=== PATIENT | male | born 1965 | race Caucasian/White ===

== ENCOUNTER 2018-11-08 12:02 | Outpatient (CLI) | payer MEDICARE, SELFPAY ==
--- NOTE | 2018-11-08 11:55 | DI.RAD_ITS ---
SYMPTOMS/DIAGNOSIS: OLECRANON BURSITIS LEFT ELBOW: Two views. No acute fracture or dislocation, lytic or sclerotic lesion is seen. There is no joint effusion. There is soft tissue swelling over the olecranon. No radiopaque foreign bodies are seen in the soft tissues. IMPRESSION: Soft tissue swelling over the olecranon.
== END 2018-11-08 12:22 ==
PROVIDERS: PCP Nurse Practitioner; Referring Provider Nurse Practitioner; Visit Provider Orthopaedic Surgery
DX: M25.522 Pain in left elbow (principal); R22.32 Localized swelling, mass and lump, left upper limb; M70.22 Olecranon bursitis, left elbow
CPT/HCPCS: 99201; 99203; 73070

== ENCOUNTER 2018-11-23 08:39 | Outpatient (REF) | payer MEDICARE, SELFPAY ==
[2018-11-23 13:53] LABS: Abs Immature Grans 0.01 k/cumm (0.0-0.09); Absolute Basophil Count 0.05 k/cumm (0.0-0.2); Absolute Eosinophil Count 0.16 k/cumm (0.0-0.7); Absolute Lymphocyte Count 1.57 k/cumm (1.2-3.4); Absolute Neutrophil Count 3.53 k/cumm (1.2-6.7); Basophils % 0.8; Eosinophils % 2.7; HCT 43.3 % (40.0-50.0); HGB 14.3 g/dL (13.5-17.5); Immature Grans % 0.2; Lymphocytes % 26.5; Mean Corpuscular Hemoglobin 29.9 pg (27.0-33.0); Mean Corpuscular Volume 90.4 fL (80-95); Mean Platelet Volume 11.2 fL (8.0-11.0); Monocytes % 10.1; Neutrophils % 59.7; Platelet Count 265 x1000/uL (130-400); RBC 4.79 m/cumm (4.50-6.00); RBC Distribution Width 13.7 % (11.8-14.1); White Blood Cell Count 5.92 k/cumm (4.4-10.8)
[2018-11-23 14:25] LABS: ALT 15 U/L (12-78); AST 11 U/L (15-37); Albumin 3.6 g/dL (3.4-5.0); Alkaline Phosphatase 62 U/L (46-116); Anion Gap 7.8 mmol/L (3-11); BUN 12 mg/dL (7-18); Bilirubin, Total 0.3 mg/dL (0.2-1.0); CO2 33.2 mmol/L (21.0-32.0); CREATININE 0.98 mg/dL (0.70-1.30); Calcium 9.2 mg/dL (8.5-10.1); Chloride 101 mmol/L (98-107); Cholesterol 211 mg/dL (50-200); Glucose 106 mg/dL (70-100); HDL Cholesterol 36 mg/dL (40-60); LDL CHOLESTEROL 144 mg/dL (<100); Potassium 3.6 mmol/L (3.5-5.1); Sodium 142 mmol/L (136-145); Total Protein 6.9 g/dL (6.4-8.2); Triglyceride 166 mg/dL (30-150)
== END 2018-11-23 08:59 ==
LOC: NCHCN 08:39
PROVIDERS: PCP Nurse Practitioner; Visit Provider Nurse Practitioner
DX: E78.5 Hyperlipidemia, unspecified (principal); I25.10 Atherosclerotic heart disease of native coronary artery without angina pectoris; I10 Essential (primary) hypertension
CPT/HCPCS: 80053; 80061; 83721; 85025

== ENCOUNTER → 2019-01-03 10:32 | Outpatient (BNVA) | payer MEDICARE, MEDICAID, SELFPAY | PROVIDERS: PCP Nurse Practitioner; Referring Provider Nurse Practitioner; Visit Provider Physical Therapy Assistant | DX: Z12.11 Encounter for screening for malignant neoplasm of colon (principal); Z80.0 Family history of malignant neoplasm of digestive organs; Z80.41 Family history of malignant neoplasm of ovary; Z79.01 Long term (current) use of anticoagulants; J44.9 Chronic obstructive pulmonary disease, unspecified; F17.210 Nicotine dependence, cigarettes, uncomplicated; I10 Essential (primary) hypertension ==

== ENCOUNTER 2019-01-09 09:06 | Outpatient (REF) | payer MEDICARE, SELFPAY ==
[2019-01-09 12:34] LABS: Cholesterol 204 mg/dL (50-200); HDL Cholesterol 40 mg/dL (40-60); LDL CHOLESTEROL 135 mg/dL (<100); Triglyceride 131 mg/dL (30-150)
== END 2019-01-09 09:26 ==
LOC: NCHCN 09:06
PROVIDERS: PCP Nurse Practitioner; Visit Provider Nurse Practitioner
DX: E78.5 Hyperlipidemia, unspecified (principal)
CPT/HCPCS: 80061; 83721

== ENCOUNTER 2019-01-28 11:07 | Day surgery (SDC) | payer MEDICARE, SELFPAY ==
--- NOTE | 2019-01-28 07:07 | W.COLOREPORT ---
Date of service: 01/28/19 Time of Service: 12:17 Colonoscopy Report Date of procedure: 01/28/19 Pre-op diagnosis general: Colon Cancer Screening Post-op diagnosis procedure note: other (polyps) Procedure: Colonoscopy with polypectomy by cold forceps Surgeon: Rufina Morrison Anesthesia proc note operative: other (General/ ASA 2 / Mckayla Pineda CRNA) Estimated blood loss (mL): 3 Pathology: other (Sigmoid polyp x1, rectal polyps x4) Complications: None Disposition: same day Indications: Mr. Bell is a pleasant 53 year old male seen in the office for colon cancer Screening. Risks, benefits and complications have been reviewed. Complications include but are not limited to bleeding, pain, perforation, missed small lesion/polyp, sore throat, aspiration and adverse reaction to the medications. Questions were entertained and answered to their satisfaction and they wished to proceed. No guarantees were given or implied. Prep: Miralax/Dulcolax Procedure Start Time: 12:17 Procedure End Time: 13:17 Retraction Time: 25 Findings: 5 small polyps removed with cold forceps very tortuous colon. Procedure Description: After informed consent was obtained the patient was taken to the procedure room and placed in a left decubitous position. Monitors were applied and a time out was done. The patients name, date of , procedure, allergies to medications and metal in their body was reviewed. The patient was then sedated. Once sedated and comfortable a rectal exam was done. External exam was normal. Internal exam revealed a normal sphincter tone and no palpable masses. The prostate smooth. The scope was then introduced and retro-flexed. No internal hemorrhoids were identified. No polyps or masses noted. The scope was then advanced to the cecum with a lot of difficultydue to a very tortuous colon. The patient had to be placed in a suppine position and abdominal pressure was applied in order for the scope to get into the cecum. The TI and appendiceal orifice were identified. The prep was suboptimal. 1.5 L of sterile water was used to clean the colon. The scope was then slowly retracted over 25 minutes back into the rectum. Polyps were removed X1 in the sigmoid colon and x4 in the rectum with cold forceps. The scope was removed and the patient was woken up and taken back to Same day surgery in stable condition. The patient tolerated the procedure well and there were no immediate complications. Follow up: The patient should follow up in 3-5 years unless they develop changes in bowel habits or other new gastrointestinal complaints.
--- NOTE | 2019-01-28 07:08 | W.PM.DSUDISC ---
Discharge Plan Disposition Patient Disposition: HOME Condition: Good Discharge Details Reason For Visit: Colon cancer Screening Attending Provider: Rufina Morrison Primary Care Provider: Dena Zuluaga Home Meds and New Rx's Prescriptions: Continued Breo Ellipta 100-25 mcg/dose blister with device 1 inh IH DAILY RF: 0 ipratropium-albuterol 0.5 mg-3 mg(2.5 mg base)/3 mL solution for nebulization 3 ml IH QID RF: 0 metoprolol tartrate 100 mg tablet 100 mg PO BID RF: 0 losartan 100 mg tablet 100 mg PO DAILY RF: 0 hydrochlorothiazide 25 mg tablet 25 mg PO DAILY RF: 0 clopidogrel 75 mg tablet 75 mg PO DAILY RF: 0 atorvastatin 10 mg tablet 10 mg PO DAILY RF: 0 aspirin [Adult Low Dose Aspirin] 81 mg tablet,delayed release (DR/EC) 81 mg PO DAILY RF: 0 albuterol 90 mcg/actuation aerosol IH RF: 0 Discharge Instructions Instructions: Colonoscopy (DC), Colorectal Polyps (DC) Additional Instructions: Findings: 5 small polyps all removed Follow up: 3-5 years Please call if you develop: fevers >101.5 Nausea or Vomiting Abdominal pain that is not transient DAY SURGERY UNIT POST COLONOSCOPY INSTRUCTIONS 1. Because there will be medication in your system for the next 24 hours, you may feel a little sleepy. Your coordination will be affected. Therefore: a. Do not drive or operate dangerous equipment for 24 hours. b. Do not drink alcohol beverages for 24 hours (not even beer). c. Plan to go home and rest for the day. 2. Generally there are no restrictions on your activity after a day or so has gone by, but you may feel a bit fatigued for a few days. 3 After you arrive home you may have a light meal and return to a normal diet as you can tolerate it without feeling sick to your stomach. 4. After surgery, you may feel pain or discomfort. This should be only transient, but if it persists please contact your doctor. 5. If there are any questions regarding the findings of your procedure, please feel free to contact your doctor. 6. If you are unable to contact your doctor with a problem, contact the hospital at [phone]. 7. Continue all your regular medications unless directed otherwise. I understand the above instructions and have no questions. Signature of Patient or Responsible Adult Escort Date/Time Name of Responsible Adult Escort Signature of Nurse Date/Time Activity:: Activity as Tolerated Diet:: As Tolerated Discharge Orders Discharge Orders: Discharge Order (Routine); Ordered 01/28/19 Ordered By: Rufina Morrison DS: Diagnosis Discharge Diagnosis (1) S/P colonoscopy: Status: Acute (2) Colorectal polyps: Status: Acute
[2019-01-28 11:18] VITALS: BP 145/97; PULSE 99; RESP 20; TEMP 35.5; O2SAT 94
[2019-01-28] MEDS: Lactated Ringers 1,000 ML 80 ML IV (12:03)
--- NOTE | 2019-01-28 12:30 | BOWEL_PTH ---
PATIENT: Catalino Bell LOC: [facility] U#:[id number] AGE/SX: 53/M ROOM: RE01/28/[address]: Rufina Morrison MD : [id number] BED: DIS: 01/28/2019 SPEC #: [id number] RECD: 01/28/19 17:14 STATUS: KENDRA ELLIS #: [id number] AYESHA: 01/28/19 12:[address]: Rufina Morrison DEPT: Surgical Specimen RECD BY: Margaret Melissa ENTERED: 01/28/19 17:14 SP TYPE: Bowel OTHR DR: Dena Zuluaga Tissues: 1 - BIOPSY BOWEL 2 - BIOPSY BOWEL Procedures: GROSS AND MICRO LEVEL 4 Comments: [id number]
[2019-01-28 13:55] VITALS: BP 129/84; PULSE 70; RESP 16; TEMP 35.4; O2SAT 96
== END 2019-01-28 14:05 | disposition home or self-care (01) ==
LOC: SUR 11:10
PROVIDERS: PCP Nurse Practitioner Family; Visit Provider Surgery
PROC: 0DJD8ZZ Inspection of Lower Intestinal Tract, Via Natural or Artificial Opening Endoscopic (ICD-10-PCS; CPT 45378; principal; 2019-01-28 12:15)
DX: Z12.11 Encounter for screening for malignant neoplasm of colon (principal); K63.5 Polyp of colon; K62.1 Rectal polyp; Z80.0 Family history of malignant neoplasm of digestive organs; F17.210 Nicotine dependence, cigarettes, uncomplicated; J44.9 Chronic obstructive pulmonary disease, unspecified; I10 Essential (primary) hypertension; I25.2 Old myocardial infarction
CPT/HCPCS: 45380; 88305

== ENCOUNTER 2019-04-26 20:53 | Outpatient (REF) | payer MEDICARE, SELFPAY ==
[2019-04-26 21:40] LABS: Hemoglobin A1C 5.8 % (4.5-6.2)
== END 2019-04-26 21:13 ==
LOC: NCHCN 20:53
PROVIDERS: PCP Nurse Practitioner Family; Visit Provider Family Medicine
DX: R73.01 Impaired fasting glucose (principal)
CPT/HCPCS: 83036

== ENCOUNTER 2020-11-27 12:56 | Emergency (ER) | payer MEDICARE, MEDICAID, SELFPAY ==
[2020-11-27] VITALS (24 sets, daily range): BP systolic 116–154; BP diastolic 61–87; PULSE 56–72; RESP 14–25; TEMP 36.6; O2SAT 95–99
--- NOTE | 2020-11-27 12:45 | RT.EKG_ITS ---
APPROVED REPORT Exam: Resting ECG Patient Location: E HR:65 bpm ECG Measurements Heart Rate 65 AXIS WY 144 P 72 QRSd 99 QRS 74 QT 413 T 58 QTc 429 Conclusion Sinus rhythm...normal P axis, V-rate 60- 99 Inferior infarct, old...Q >35mS, II III aVF
--- NOTE | 2020-11-27 13:01 | ED.GENADUL_ITS ---
Discharge Plan Disposition Patient Disposition: HOME Condition: Good Discharge Details Clinical Impression: Hand tingling Primary Care Provider: Dena Zuluaga ED Provider: Rupinder Morris Home Meds and New Rx's Prescriptions: Continued ipratropium-albuterol 0.5 mg-3 mg(2.5 mg base)/3 mL solution for nebulization 3 ml IH QID RF: 0 losartan 100 mg tablet 100 mg PO DAILY RF: 0 hydrochlorothiazide 25 mg tablet 25 mg PO DAILY RF: 0 aspirin [Adult Low Dose Aspirin] 81 mg tablet,delayed release (DR/EC) 81 mg PO DAILY RF: 0 albuterol 90 mcg/actuation aerosol 90 mcg IH PRN PRNRF: 0 Trelegy Ellipta 100-62.5-25 mcg blister with device 1 inh INHALATION DAILY RF: 0 bupropion HCl 150 mg tablet sustained-release 12 hr 150 mg PO DIRECTED RF: 0 atorvastatin 80 mg tablet 80 mg PO DAILY RF: 0 cetirizine 10 mg tablet 10 mg PO DAILY RF: 0 metoprolol succinate 25 mg tablet extended release 24 hr 25 mg PO DAILY RF: 0 Discharge Instructions Instructions: Paresthesia (ED) Additional Instructions: Your cardiac evaluation today is reassuring. I do not see any evidence to suggest that you are having another issue with your heart. However, I am concerned that you may have tunnel. I would like for you to follow-up with your primary care provider next week for reevaluation. Please continue to use the brace provided today. Please avoid heavy lifting. If he develop chest pain, shortness of breath, fevers or other new/worsening symptoms please seek care urgently once again. Referrals: Dena Zuluaga [Primary Care Provider] - Discharge Data Discharge Date/Time-TO BE ENTERED AT DEPARTURE: 11/27/20 17:20 Medical Decision Making Patient is a pleasant 35-year-old [id number] male presents today with chief complaint of left arm tingling. Patient is deaf. We were able to use the research specialist which diminished to medication barriers. Patient reports that he woke up this morning noting some tingling in his left arm. He reports that it goes from the hand up to almost near the elbow. Sounds like the radiation can worsen with certain activities. Is not having any pain in the arm. Is able to sense things in the hand. Does have this also has a tingling sensation. He has not had experience like historically. He denies any chest pain. Patient reports chronic shortness of breath but associates this with COPD. No recent change in his. Patient did recently stop smoking. He states that yesterday he was quite active and did not experience any of this left arm sensation. He did have a different sensation and reported some left shoulder pain that was not worsened with activity. He reports that this felt like he slept on it wrong. Patient does have a history of an [place] and had a stent placed in 2013. He did experience some left arm pain at that time. Patient is on daily aspirin, atorvastatin, metoprolol. On exam, patient appears nontoxic. He is notably hypertensive blood pressure 154/79. Vital signs otherwise within normal limits. Normal cardiac exam. Lungs are clear in all craig. No lower extremity edema or calf tenderness. He does have a positive Tinel on the left arm. He experiences sensations in the 1 through 4 digits. Describes this is worsening tingling. Negative Spurling's. No neck pain. Good range of motion of his hands with no neurologic dysfunction noted. Differential diagnosis does include ACS based on the patient's history. However, his exam is more consistent with carpal tunnel. Pain does not worsen with activity. He is not having any shortness of breath or chest pain. Did not have clinical patient for pulmonary embolism. ECG reviewed by Dr. Bonds. Patient is in normal sinus rhythm with a rate of 65. No acute ischemic changes noted. MEDIASTINUM: Normal. HEART: Normal. PULMONARY VASCULATURE: Normal. LUNGS: Clear. PLEURAL SPACE: No pleural effusion or pneumothorax. BONE:Within normal limits for the patient's age. OTHER FINDINGS:The nipple shadow is again seen to the left of the heart. A PA view of the chest with nipple markers may be obtained to confirm this. IMPRESSION: No acute pulmonary findings. Labs reviewed. CBC without acute abnormality, coags normal, chemistry significant for slightly elevated anion gap of 12, otherwise within normal limits. Troponin less than 0.05. I discussed these findings with the patient and reevaluated him. When sedentary, the tingling does improve. However, when he began signing again he noted that his symptoms increase. Does note that finding as well as activities with the hand worsens his symptoms. However, he denies symptoms worsening with ambulation. This seems to be truly with the use of the extremity. He is now reporting that the tingling seems more focal to the second and third digit. I did abundance of precaution, I do feel that pulmonary would be appropriate, particularly given the patient history. However, we discussed again if his symptoms would correlate with carpal tunnel. Dr. Bonds reviewed EKG is unchanged. Patient is in sinus bradycardia with a rate of 57. No acute ischemic changes noted. Patient's repeat troponin remains less than 0.05. Patient will be fitted with a universal wrist splint to help with gentle extension of the affected wrist as his history exam is most consistent at this time with carpal tunnel. I did advise close follow-up with primary care. I also advised that he discuss further cardiac work-up with them as indicated. Strict return precautions were discussed. I encouraged elevation. Advised that he hold off on any heavy lifting or activities that cause increased discomfort. All of his questions and concerns were addressed and he is in agreement this plan. HPI General Mode of arrival: ambulatory . Date/Time Provider Initiated Documentation: 11/27/20 13:01 . Limitations to Documentation: language barrier (research specialist used historically) . Information obtained by: patient, RN notes reviewed and old records reviewed . History of Present Illness 55 year old M presents to the emergency department with the chief complaint of left arm numbness, described as moderate, Quali ty is described as other (numb), and is localized to the left and upper extremity. Patient reports no radiation. Patient started experiencing this hour(s) (noted when he woke up) and it has been constant. No relieving factors improve symptom(s), No exacerbating factors reported . Patient notes no other symptoms. and shortness of breath (reports chronic and unchanged, hx of COPD); denies chest pain, cough, fever/chills, nausea/vomiting and rash. Patient did receive the following treatments prior to arrival, none Related Data Home Medications Medication Instructions Recorded Confirmed albuterol 90 mcg/actuation aerosol 90 mcg IH PRN PRN 11/09/18 11/27/20 inhaler aspirin 81 mg tablet,delayed 81 mg PO DAILY 11/09/18 11/27/20 release hydrochlorothiazide 25 mg tablet 25 mg PO DAILY 11/09/18 11/27/20 ipratropium 0.5 mg-albuterol 3 mg 3 ml IH QID 11/09/18 11/27/20 (2.5 mg base)/3 mL nebulization soln losartan 100 mg tablet 100 mg PO DAILY 11/09/18 11/27/20 Trelefranko Ellipta 1 inh INHALATION DAILY 11/27/20 11/27/20 atorvastatin 80 mg PO DAILY 11/27/20 11/27/20 bupropion HCl 150 mg PO DIRECTED 11/27/20 11/27/20 cetirizine 10 mg PO DAILY 11/27/20 11/27/20 metoprolol succinate 25 mg PO DAILY 11/27/20 11/27/20 Allergies Allergy/AdvReac Type Severity Reaction Status Date / Time varenicline [From Chantix] Allergy Severe unknown Verified 11/27/20 13:12 fluticasone [From Flonase] Allergy Intermediate unknown Verified 11/27/20 13:12 salmeterol Allergy Intermediate unknown Verified 11/27/20 13:12 [From Advair Diskus] Penicillins Allergy Unknown Verified 11/27/20 13:12 tramadol Allergy Unknown Verified 11/27/20 13:12 Review of Systems Constitutional Constitutional: Reports as per HPI, Denies chills, Denies fever(s), Denies headache(s), Denies lethargy and Denies poor appetite Eyes Eyes: Denies change in vision ENT Ears, Nose, Mouth, and Throat: Denies dizziness and Denies headache(s) Cardiovascular Cardiovascular: Reports as per HPI, Denies chest pain, Denies chest pain at rest, Denies chest pain with activity, Denies syncope, Denies lightheadedness, Denies radiating jaw, neck or arm pain, Reports dyspnea (chronic and unchanged) and Denies dyspnea on exertion Respiratory Respiratory: Reports as per HPI, Denies chest congestion, Denies cough, Denies pain on inspiration, Denies pain with cough, Reports dyspnea (chronic and unchanged), Denies dyspnea on exertion and Denies wheezing Gastrointestinal Gastrointestinal: Reports as per HPI, Denies abdominal pain, Denies diarrhea, Denies nausea and Denies vomiting Genitourinary Genitourinary: Denies system reviewed and no additional complaints, except as documented (denies change in urinary habits) Musculoskeletal Musculoskeletal: Reports as per HPI, Denies back pain and Reports tingling Integumentary/Breasts Skin/Breast: Reports as per HPI and Denies rash Neurologic Neurologic: Reports as per HPI, Denies dizziness, Denies syncope, Denies headache(s) and Reports tingling Allergic/Immunologic Allergic/Immunologic: Denies wheezing [facility] Medical History (Updated 11/27/20 @ 16:59 by JAZMIN Gagnon) Anemia Asthma Benign hypertension Bilateral deafness Centrilobular emphysema Colorectal polyps (~01/28/19) COPD (chronic obstructive pulmonary disease) Hyperlipidemia Myocardial infarct Pulmonary nodule Tobacco abuse Surgical History History of coronary artery stent placement S/P colonoscopy (~01/28/19) Social History Smoking/Tobacco Use Status: Current-Occasional Tobacco Type: cigarettes Smoking risk assessment performed?: Yes Alcohol Intake: current Alcohol Intake frequency: a few times a week Alcohol type: beer Drug use: Occasionally Substance use type: marijuana Details: 2 weeks ago Exam Const General: cooperative, healthy appearing, comfortable, no acute distress and well developed Nutritional Appearance: average body habitus and well nourished Orientation: alert, awake and oriented x3 HENMT Head: normal to inspection Ears: hearing grossly normal bilaterally Mouth: moist mucous membranes Chest Chest: normal inspection of the chest, normal palpation of entire chest wall and no crepitus Resp Effort & Inspection: normal respiratory effort, able to speak in complete sentences and no respiratory distress Auscultation: clear to auscultation bilaterally, no rales, no rhonchi and no wheezes Cardio Rate: regular rate Rhythm: regular rhythm Heart Sounds: S1 normal and S2 normal GI Inspection: normal to inspection, no edema and non-distended Palpation: soft, no hepatosplenomegaly, not firm, no guarding, not rigid and nontender Auscultation: normal bowel sounds Back/Spine/Pelvis Back: no CVA tenderness Thoracic/Lumbar Spine: thoracic and lumbar spine normal to inspection Skin General skin exam: no rashes or lesions noted Trauma: no lacerations or abrasions Neuro General: patient alert, patient awake and patient oriented x3 Cognition: normal cognition Speech: speech normal Gait: normal gait Extrem General: normal to inspection, capillary refill normal, no pedal edema, no calf tenderness and normal gait Psych Appearance: grossly normal and well kempt Mental Status: mental status grossly normal Speech and Movement: speech and movement normal
[2020-11-27] MEDS: Normal Saline Flush 10 ML SYR IVP (13:22)
[2020-11-27 13:36] LABS: Abs Immature Grans 0.02 10^3/uL (0.0-0.06); Absolute Basophil Count 0.08 10^3/uL (0.0-0.2); Absolute Eosinophil Count 0.11 10^3/uL (0.0-0.7); Absolute Lymphocyte Count 1.36 10^3/uL (1.2-3.4); Absolute Monocyte Count 0.41 10^3/uL (0.1-0.8); Basophils % 1.2; Eosinophils % 1.7; HCT 42.2 % (40.0-50.0); HGB 14.3 g/dL (13.5-17.5); Immature Grans % 0.3; MCHC 33.9 % (32.0-36.0); MCV 88.7 fL (80-95); Monocytes % 6.3; Neutrophils % 69.5; Nucleated RBC 0 %; Platelet Count 267 10^3/uL (130-400); RBC 4.76 10^6/uL (4.36-5.78); RDW 12.3 % (11.8-14.1); RDW-SD 40.7 fL; WBC 6.48 10^3/uL (4.4-10.8)
[2020-11-27 13:51] LABS: ALT 25 U/L (16-63); AST 17 U/L (15-37); Albumin 4.1 g/dL (3.4-5.0); Alkaline Phosphatase 67 U/L (46-116); Anion Gap 12.1 mmol/L (3-11); BUN 10 mg/dL (7-18); Bilirubin, Total 0.6 mg/dL (0.2-1.0); CO2 25.9 mmol/L (21.0-32.0); CREATININE 0.9 mg/dL (0.70-1.30); Calcium 8.7 mg/dL (8.5-10.1); Chloride 100 mmol/L (98-107); Glucose 90 mg/dL (74-106); Magnesium 2.2 mg/dL (1.8-2.4); Sodium 138 mmol/L (136-145); Total Protein 7.6 g/dL (6.4-8.2)
--- NOTE | 2020-11-27 13:52 | DI.RAD_ITS ---
EXAM: XR CHEST 2V PA LATERAL CLINICAL HISTORY: left arm pain, hx of [place] TECHNIQUE: 2D digital imaging was performed. COMPARISON: CR PORTABLE CHEST ONE VIEW from 09/09/2014 FINDINGS: MEDIASTINUM: Normal. HEART: Normal. PULMONARY VASCULATURE: Normal. LUNGS: Clear. PLEURAL SPACE: No pleural effusion or pneumothorax. BONE:Within normal limits for the patient's age. OTHER FINDINGS:The nipple shadow is again seen to the left of the heart. A PA view of the chest with nipple markers may be obtained to confirm this. IMPRESSION: No acute pulmonary findings. DATA REPOSITORY: RADIATION DOSE DELIVERED:
[2020-11-27 13:53] LABS: PTT Activated 23.7 sec (21.0-27.5); Prothrombin Time 10.5 sec (9.3-11.0)
[2020-11-27 14:04] LABS: Troponin I < 0.05 ng/mL (<0.06)
--- NOTE | 2020-11-27 16:00 | RT.EKG_ITS ---
APPROVED REPORT Exam: Resting ECG Patient Location: E HR:57 bpm ECG Measurements Heart Rate 57 AXIS LA 150 P 73 QRSd 99 QRS 56 QT 445 T 57 QTc 432 Conclusion Sinus bradycardia...rate< 60
[2020-11-27 16:45] LABS: Troponin I < 0.05 ng/mL (<0.06)
== END 2020-11-27 17:20 | disposition home or self-care (01) ==
PROVIDERS: Emergency Provider Physician Assistant; PCP Nurse Practitioner Family
DX: R20.2 Paresthesia of skin (principal); I10 Essential (primary) hypertension; H91.3 Deaf nonspeaking, not elsewhere classified
CPT/HCPCS: 29125; 36415; 80053; 93005; 99285; 71046; 83735; 84484; 85025; 85610; 85730; 93010

== ENCOUNTER 2021-05-02 20:33 | Emergency (ER) | payer MEDICARE, MEDICAID, SELFPAY ==
[2021-05-02 20:45] VITALS: BP 140/86; PULSE 101; RESP 24; TEMP 36.5; O2SAT 91
--- NOTE | 2021-05-02 20:45 | DI.RAD_ITS ---
Exam(s) XR CHEST 2V PA LATERAL EXAM: XR CHEST 2V PA LATERAL CLINICAL HISTORY: cough, SOB, syncope. TECHNIQUE: 2D digital imaging was performed. COMPARISON: CR PORTABLE CHEST ONE VIEW from 09/09/2014 CR PORTABLE CHEST ONE VIEW from 09/09/2014 CR XR CHEST 2V PA LATERAL from 11/27/2020 FINDINGS: Heart size is normal. The mediastinum is not widened. Lungs are clear. No infiltrates nor pleural effusions. IMPRESSION: No acute pulmonary findings. DATA REPOSITORY: RADIATION DOSE DELIVERED:
--- NOTE | 2021-05-02 20:45 | RT.EKG_ITS ---
APPROVED REPORT Exam: Resting ECG Reason for Exam: syncope Patient Location: E HR:97 bpm ECG Measurements Heart Rate 97 AXIS HI 123 P 82 QRSd 103 QRS 89 QT 344 T 54 QTc 434 Conclusion Sinus rhythm...normal P axis, V-rate 60- 99 Ventricular premature complex...V complex w/ short R-R interval Right atrial enlargement...P>0.25mV 2 lds or<-0.24mV aVR/aVL Low voltage, extremity leads...all extremity leads <0.5mV I have reviewed and interpreted ECG and agree with software generated interpretation. There are no significant changes compared to prior EKG performed on 11/27/2020 at 16:20.
--- NOTE | 2021-05-02 20:47 | W.ED.GENAD ---
Discharge Plan Disposition Patient Disposition: HOME Condition: Good Discharge Details Clinical Impression: COPD exacerbation, Pulmonary nodule, Diuretic-induced hypokalemia Primary Care Provider: [facility] ED Provider: Ezequiel Mendoza [place] Meds and New Rx's Prescriptions: New cefixime 400 mg capsule 400 mg PO DAILY 10 Days Qty: 10 RF: 0 azithromycin 250 mg tablet 250 mg PO DAILY Qty: 4 RF: 0 prednisone 20 mg tablet See Taper mg PO DAILY Qty: 12 RF: 0 Continued ipratropium-albuterol 0.5 mg-3 mg(2.5 mg base)/3 mL solution for nebulization 3 ml IH QID RF: 0 losartan 100 mg tablet 100 mg PO DAILY RF: 0 hydrochlorothiazide 25 mg tablet 25 mg PO DAILY RF: 0 aspirin [Adult Low Dose Aspirin] 81 mg tablet,delayed release (DR/EC) 81 mg PO DAILY RF: 0 albuterol 90 mcg/actuation aerosol 90 mcg IH PRN PRNRF: 0 Trelegy Ellipta 100-62.5-25 mcg blister with device 1 inh INHALATION DAILY RF: 0 bupropion HCl 150 mg tablet sustained-release 12 hr 150 mg PO DIRECTED RF: 0 atorvastatin 80 mg tablet 80 mg PO DAILY RF: 0 cetirizine 10 mg tablet 10 mg PO DAILY RF: 0 metoprolol succinate 25 mg tablet extended release 24 hr 25 mg PO DAILY RF: 0 Discharge Instructions Instructions: Hypokalemia (ED), COPD (Chronic Obstructive Pulmonary Disease) (ED) Additional Instructions: We will treat you for COPD exacerbation and infection. Please take the antibiotic and prednisone as directed. Continue your inhalers. Yellow your albuterol rescue inhaler every 4-6 hours over the next 5 to 7 days. There is a nodule on your CT scan and radiology recommends follow-up in 3 months. Your potassium was low likely related to your water pill. Try to eat foods high in potassium like bananas. Follow-up with primary care end of the week for recheck. Return to the emergency department if you develop increased difficulty breathing, new or worsening chest pain, mental status changes, vomiting, other concerns. Stand Alone Forms: PENDING COVID-19 TESTING, Work Release Referrals: [facility] [Primary Care Provider] - Medical Decision Making Patient presenting with increasing cough, shortness of breath, chest tightness. He reports passing out today for a couple of hours. States he got lightheaded and dizzy, sat down on the floor, woke up with his dog beside him and had been out for hours. Not sure I would consider this syncope with complete normal recovery at this point if it was for hours. In any event it appears to be a COPD exacerbation and will be given nebulizer and steroids. We will do work-up including chest x-ray, laboratory studies. EKG is sinus rhythm and unchanged from previous with no evidence of acute ST changes. Laboratory studies significant for slight elevated white count at 12. His potassium is quite low at 2.8 and is replaced intravenously as well as oral. He is noted to be on diuretic. Troponin is negative. D-dimer is positive. His chest x-ray had suggested bilateral patchy basilar infiltrates. However CT scan was obtained because of positive D-dimer. No infiltrates were noted. Patient noted to have significant tree in bud formations. There was no PE. There is a pulmonary nodule which will need follow-up. Patient feels better after nebs. He is sleeping. He is given a dose of IV ceftriaxone and oral azithromycin. We will continue antibiotics outpatient as well as prednisone burst and taper. Albuterol rescue inhaler every 4-6 hours while ill. Covid swab was obtained. Patient out of work until negative test and feeling better. Follow-up with primary care. Return to ED if problems. Medical Records Medical records reviewed: Yes I reviewed the patient's medical records. Lab Data Lab results reviewed: Yes I reviewed the patient's lab results. ECG Data Attestation: I personally reviewed and interpreted this ECG (s) as follows: Prior ECG tracings: available for review Interpretation: see EKG HPI General Mode of arrival: ambulatory. Date/Time Provider Initiated Documentation: 05/02/21 20:42. Limitations to Documentation: no limitations. Information obtained by: patient, RN notes reviewed and old records reviewed. HPI Narrative: Patient presents to ED with complaint of cough, shortness of breath, chest tightness since Monday, 4 days now. He reports episodes of feeling hot and having chills but has never documented a fever. Reports worsening symptoms over the course of the 4 days. Denies chest pain per se but states has a sensation of tightness. Reports getting dizzy today and passing out on the floor for a couple of hours. This is apparently what prompted him to come to ED tonight. He denies headache, neck pain, abdominal pain, vomiting, difficulty urinating, leg pain or swelling. He is deaf but reads lips. He does have history of COPD as well as previous SC. Related Data Home Medications Medication Instructions Recorded Confirmed albuterol 90 mcg/actuation aerosol 90 mcg IH PRN PRN 11/09/18 11/27/20 inhaler aspirin 81 mg tablet,delayed 81 mg PO DAILY 11/09/18 11/27/20 release hydrochlorothiazide 25 mg tablet 25 mg PO DAILY 11/09/18 11/27/20 ipratropium 0.5 mg-albuterol 3 mg 3 ml IH QID 11/09/18 11/27/20 (2.5 mg base)/3 mL nebulization soln losartan 100 mg tablet 100 mg PO DAILY 11/09/18 11/27/20 Trelegy Ellipta 1 inh INHALATION DAILY 11/27/20 11/27/20 atorvastatin 80 mg PO DAILY 11/27/20 11/27/20 bupropion HCl 150 mg PO DIRECTED 11/27/20 11/27/20 cetirizine 10 mg PO DAILY 11/27/20 11/27/20 metoprolol succinate 25 mg PO DAILY 11/27/20 05/02/21 azithromycin 250 mg PO DAILY #4 tab 05/02/21 cefixime 400 mg PO DAILY 10 Days #10 cap 05/02/21 prednisone See Taper PO DAILY #12 tab 05/02/21 Previous Rx's Medication Instructions Recorded azithromycin 250 mg PO DAILY #4 tab 05/02/21 cefixime 400 mg PO DAILY 10 Days #10 cap 05/02/21 prednisone See Taper PO DAILY #12 tab 05/02/21 Allergies Allergy/AdvReac Type Severity Reaction Status Date / Time varenicline [From Chantix] Allergy Severe unknown Verified 11/27/20 13:12 fluticasone [From Flonase] Allergy Intermediate unknown Verified 11/27/20 13:12 salmeterol Allergy Intermediate unknown Verified 11/27/20 13:12 [From Advair Diskus] Penicillins Allergy Unknown Verified 11/27/20 13:12 tramadol Allergy Unknown Verified 11/27/20 13:12 General LOGAN: 2 Review of Systems Narrative: 08/05 Review of Systems completed and is negative except as stated above in HPI (Systems reviewed: Const, Eyes, ENT, Resp, CV, GI, , MSK, Skin, Neuro) [facility] Medical History Anemia Asthma Benign hypertension Bilateral deafness Centrilobular emphysema Colorectal polyps (~01/28/19) COPD (chronic obstructive pulmonary disease) Hyperlipidemia Myocardial infarct Pulmonary nodule Tobacco abuse Surgical History History of coronary artery stent placement S/P colonoscopy (~01/28/19) Social History Smoking/Tobacco Use Status: Current-Occasional Tobacco Type: cigarettes Smoking risk assessment performed?: Yes Alcohol Intake: current Alcohol Intake frequency: a few times a week Alcohol type: beer Drug use: Occasionally Substance use type: marijuana Details: 2 weeks ago Do you feel safe at home: Yes Do you feel safe in your relationship?: Yes Exam Narrative Exam Narrative: Const: WDWN male in NAD. HEENT: NC/AT. Normal facial exam. Eyes: Normal conjunctiva and sclera. Neck: Supple. Trachea midline. Lungs: Normal respiratory effort. Lungs with diffuse wheeze throughout but decent air exchange. Cor: RRR without murmur/gallop. Good radial pulses. GI: Soft. ND. Neuro: A+O x 3. Normal speech, mentation, gait. Cranial nerves II - XII grossly intact. No gross motor or sensory deficit. Ext: No C/C/E. Skin: Warm and dry without rash.
[2021-05-02 21:28] LABS: Abs Immature Grans 0.06 10^3/uL (0.0-0.06); Absolute Basophil Count 0.06 10^3/uL (0.0-0.2); Absolute Eosinophil Count 0.05 10^3/uL (0.0-0.7); Absolute Lymphocyte Count 1.09 10^3/uL (1.2-3.4); Absolute Monocyte Count 1.49 10^3/uL (0.1-0.8); Absolute Neutrophil Count 9.38 10^3/uL (1.2-6.7); Basophils % 0.5; Eosinophils % 0.4; HCT 39.6 % (40.0-50.0); HGB 13.2 g/dL (13.5-17.5); Immature Grans % 0.5; MCH 29.4 pg (27.0-33.0); MCHC 33.3 % (32.0-36.0); MCV 88.2 fL (80-95); MPV 10.2 fL (8.0-11.0); Monocytes % 12.3; Neutrophils % 77.3; Nucleated RBC 0 %; Platelet Count 299 10^3/uL (130-400); RBC 4.49 10^6/uL (4.36-5.78); RDW 12.6 % (11.8-14.1); RDW-SD 41.1 fL; WBC 12.14 10^3/uL (4.4-10.8)
[2021-05-02] MEDS: methylPREDNISolone SUCC 125 MG VIAL IVP (21:32)
[2021-05-02] MEDS: Lactated Ringers 1,000 ML 1000 ML IV (21:43)
[2021-05-02 21:44] LABS: ALT 16 U/L (16-63); AST 16 U/L (15-37); Alkaline Phosphatase 64 U/L (46-116); Anion Gap 10.4 mmol/L (3-11); BUN 15 mg/dL (7-18); Bilirubin, Total 0.4 mg/dL (0.2-1.0); CO2 29.6 mmol/L (21.0-32.0); CREATININE 1.3 mg/dL (0.70-1.30); Chloride 96 mmol/L (98-107); Estimated GFR 57.31 (mL/min/1.73m2); Glucose 110 mg/dL (74-106); Magnesium 2.1 mg/dL (1.8-2.4); Sodium 136 mmol/L (136-145); Total Protein 7.5 g/dL (6.4-8.2); Troponin I < 0.05 ng/mL (<0.06)
[2021-05-02 21:45] LABS: Potassium 2.8 mmol/L (3.5-5.1)
[2021-05-02] MEDS: POTASSIUM CHLORIDE 10 MEQ/100 ML BAG 100 MEQ IVPB (22:00)
--- NOTE | 2021-05-02 22:12 | DI.VRAD_ITS ---
PROCEDURE INFORMATION: Exam: XR Chest Exam date and time: 05/02/2021 9:00 PM Age: 55 years old Clinical indication: Cough and shortness of breath and other: Syncope; Patient HX: SOB, cough, syncope TECHNIQUE: Imaging protocol: XR of the chest. Views: 2 views. COMPARISON: CR XR CHEST 2V PA LATERAL 11/27/2020 1:42 PM FINDINGS: Lungs: Lungs are hyperaerated. Patchy airspace opacity noted in both lower lobes. Pulmonary vessels are not congested. Pleural spaces: Unremarkable. No pleural effusion. No pneumothorax. Heart/Mediastinum: Unremarkable. No cardiomegaly. Bones/joints: Thoracic kyphosis is exaggerated. No compression fractures are observed. Moderate degenerative changes present in the cervical spine. IMPRESSION: Chronic lung disease. Patchy infiltrates or edema noted bilaterally. Dictated and Authenticated by: Rahul Carpenter MD. Ordering:GANESH Nieves MD
[2021-05-02] MEDS: Potassium Chloride 20 MEQ TABCR 40 MEQ PO (22:20)
[2021-05-02 22:26] LABS: D-Dimer 1077 ng/mlFEU (<500)
[2021-05-02 22:30] VITALS: TEMP 37
--- NOTE | 2021-05-02 22:30 | DI.CT_ITS ---
Exam(s) CT CHEST PE CTA EXAM: CT CHEST PE CTA CLINICAL HISTORY: SOB with positive d-dimer. TECHNIQUE: Imaging Protocol: CT angiography of the chest was performed using pulmonary embolus sharon col. Multi planar reconstructions were performed. CONTRAST MATERIAL: Intravenous: Omnipaque 350 Contrast volume: 100 cc COMPARISON: CR,XR XR CHEST 2V PA LATERAL from 05/02/2021 CR,XR XR CHEST 2V PA LATERAL from 05/02/2021 FINDINGS: CHEST: PULMONARY ARTERIES: There are no intraluminal filling defects to suggest acute pulmonary emboli. LUNGS: There is patchy tree in bud infiltrates in the right upper lobe and right lower lobe superior segment as well as right middle lobe. Also involving left upper lobe. There is a 8 millimeter nodul e in the superior lingular segment of the left lung. No other distinct nodules. There are no pleura l effusions. MEDIASTINUM: There is no hilar nor mediastinal adenopathy. Visualized thyroid unremarkable. CARDIAC: Heart size is upper normal. There is no pericardial effusion.Caliber of the thoracic aorta is within normal limits. There is no significant shift of the interventricular septum. PARTIALLY VISUALIZED UPPERMOST ABDOMEN: No obvious findings OSSEOUS: There is a healing subacute fracture of the manubrium sternum. No other fractures identifie d. No significant osseous lesions.. IMPRESSION: 1. No evidence of acute pulmonary emboli. No evidence of pulmonary infarction.No pleural effusions. 2. There is extensive bilateral tree-in-bud infiltrate in both lungs as described above. No associat ed pleural effusions nor intrathoracic adenopathy. 3. There is a solitary 8 millimeter noncalcified nodule in the lingula of the left lung. Comparison to any prior outside studies would be helpful. Recommend follow-up CT scan in 3 months. RADIATION DOSE DELIVERED: 381.02mGy.cm Total DLP DATA REPOSITORY: All CT scans at this facility are submitted to the National Radiology Data Registry (NRDR) Dose Index Registry (DIR) with the [employer] (ACR). RADIATION OPTIMIZATION: All CT scans at this facility use at least one of these dose optimization te chniques: automated exposure control; mA and/or kV adjustment per patient size (includes targeted exa ms where dose is matched to clinical indication); or iterative reconstruction.
[2021-05-02] MEDS: Omnipaque 350 MG/ML 100 ML BTL IJ (23:11)
[2021-05-02] MEDS: Normal Saline Flush 10 ML SYR IVP (23:12)
[2021-05-02] MEDS: Normal Saline - Diluent 50 ML VIAL IV (23:12)
[2021-05-02] MEDS: Azithromycin 250 MG TAB 500 MG PO (23:17)
[2021-05-02] MEDS: cefTRIAXone 1 GM/50 ML BAG IVPB (23:17)
--- NOTE | 2021-05-02 23:29 | DI.VRAD_ITS ---
PROCEDURE INFORMATION: Exam: CTA Chest With Contrast Exam date and time: 05/02/2021 10:31 PM Age: 55 years old Clinical indication: Abnormal findings; Abnormal diagnostic tests; Cough and shortness of breath; Prior surgery; Surgery date: 6+ months; Surgery type: Stent placed; Patient HX: SOB, elevated d-dimer, cough TECHNIQUE: Imaging protocol: Computed tomographic angiography of the chest with contrast. 3D rendering (Not supervised by radiologist): MIP and/or 3D reconstructed images were created by the technologist. Radiation optimization: All CT scans at this facility use at least one of these dose optimization techniques: automated exposure control; mA and/or kV adjustment per patient size (includes targeted exams where dose is matched to clinical indication); or iterative reconstruction. Contrast material: OMNIPAQUE 350; Contrast volume: 100 ml; Contrast route: INTRAVENOUS (IV); COMPARISON: CR XR CHEST 2V PA LATERAL 05/02/2021 9:45 PM FINDINGS: Pulmonary arteries: Normal. No pulmonary emboli. Aorta: Unremarkable. No aortic aneurysm. No aortic dissection. Great vessels off aortic arch: Moderate-severe calcifications noted at the origin of the left subclavian artery, and stenosis at the site is suspected. Arteriosclerotic calcifications are mild overall. Lungs: Negative for pulmonary consolidation or ground-glass opacity. Numerous extensive areas of tree-in-bud opacity are present, extending throughout both lungs. An 8 mm nodule is noted in the lingula, noncalcified. Pleural spaces: Unremarkable. No pneumothorax. No pleural effusion. Heart: Unremarkable. No cardiomegaly. No pericardial effusion. Lymph nodes: Unremarkable. No enlarged lymph nodes. Bones/joints: A nondisplaced fracture is observed in the manubrium, extending transversely across the manubrium proximal to the sternomanubrial junction. There is callus formation. There is no evidence of adjacent soft tissue hematoma. Inferior sternum and xiphoid process are intact. No evidence of compression fracture in the thoracic spine. There are no displaced rib fractures. Soft tissues: No evidence of chest wall mass or hematoma. IMPRESSION: 1. Negative for pulmonary embolism. 2. Extensive tree-in-bud opacity. Bronchiolitis and atypical pneumonia favored. 3. Solitary 8 mm pulmonary nodule noted in the lingula. Correlate with previous imaging if available. CT follow-up in 3 months recommended. [place] society guidelines 2017. 4. Stenosis suspected in the left subclavian artery origin. 5. Subacute fracture of the manubrium. Correlate for any recent trauma at this site. Dictated and Authenticated by: Rahul Carpenter MD. Ordering:GANESH Nieves MD
[2021-05-02 23:56] VITALS: TEMP 36.6
[2021-05-03 00:46] LABS: Source Nasal/Nares
[2021-05-03 01:36] LABS: COVID-19 PCR Negative (Negative)
--- NOTE | 2021-05-03 08:31 | NUR.NOTE ---
patient notified via the translation line for hearing impaired, verified identity and relayed negative covid test results to him.
== END 2021-05-03 00:20 | disposition home or self-care (01) ==
PROVIDERS: Emergency Provider Emergency Medicine; PCP Family Medicine
DX: J44.1 Chronic obstructive pulmonary disease with (acute) exacerbation (principal); E87.6 Hypokalemia; T50.2X5A Adverse effect of carbonic-anhydrase inhibitors, benzothiadiazides and other diuretics, initial encounter; R91.1 Solitary pulmonary nodule; R79.1 Abnormal coagulation profile; Z20.822 Contact with and (suspected) exposure to COVID-19; Z03.818 Encounter for observation for suspected exposure to other biological agents ruled out; H91.93 Unspecified hearing loss, bilateral; F17.210 Nicotine dependence, cigarettes, uncomplicated
CPT/HCPCS: 36415; 71275; 80053; 87635; 93005; 96361; 96365; 96368; 96375; 99285; U0003; 71046; 83735; 84484; 85025; 85379; 93010; J0696; J2930; J3480; J3490

== ENCOUNTER 2021-07-09 14:50 | Outpatient (REF) | payer MEDICARE, MEDICAID, SELFPAY ==
[2021-07-10 16:13] LABS: COVID-19 RT-PCR UVMMC Result Negative (Negative)
== END 2021-07-09 14:51 | disposition home or self-care (01) ==
LOC: NCHCN 14:50
PROVIDERS: PCP Family Medicine; Visit Provider Family Medicine
DX: Z20.822 Contact with and (suspected) exposure to COVID-19 (principal); R05 Cough
CPT/HCPCS: U0003; U0005

== ENCOUNTER 2021-08-09 15:59 | Outpatient (REF) | payer MEDICARE, MEDICAID, SELFPAY ==
[2021-08-09 21:30] LABS: ALT 23 U/L (16-63); AST 15 U/L (15-37); Albumin 4.1 g/dL (3.4-5.0); Alkaline Phosphatase 56 U/L (46-116); Anion Gap 8.2 mmol/L (3-11); BUN 13 mg/dL (7-18); Bilirubin, Total 0.2 mg/dL (0.2-1.0); CO2 29.8 mmol/L (21.0-32.0); CREATININE 0.9 mg/dL (0.70-1.30); Chloride 104 mmol/L (98-107); Glucose 94 mg/dL (74-106); Potassium 3.8 mmol/L (3.5-5.1); Sodium 142 mmol/L (136-145); Total Protein 6.9 g/dL (6.4-8.2)
[2021-08-09 22:32] LABS: Hemoglobin A1C 5.6 % (<5.7)
== END 2021-08-09 16:00 | disposition home or self-care (01) ==
LOC: NCHCN 15:59
PROVIDERS: PCP Family Medicine; Visit Provider Family Medicine
DX: R73.03 Prediabetes (principal)
CPT/HCPCS: 80053; 83036

== ENCOUNTER 2021-08-26 02:49 | Outpatient (CLI) | payer MEDICARE, MEDICAID, SELFPAY ==
[2021-08-27 17:31] LABS: Clam IgE <0.35 kU/L; Crab IgE <0.35 kU/L; Lobster IgE <0.35 kU/L; Oyster IgE <0.35 kU/L; Scallop IgE <0.35 kU/L; Shrimp IgE <0.35 kU/L
== END 2021-08-26 02:50 | disposition home or self-care (01) ==
LOC: LBO 02:49
PROVIDERS: PCP Family Medicine; Visit Provider Physician Assistant
DX: Z91.013 Allergy to seafood (principal)
CPT/HCPCS: 36415; 86003

== ENCOUNTER 2021-09-29 05:07 | Observation (INO) | payer MEDICARE, MEDICAID, SELFPAY ==
[2021-09-29] VITALS (53 sets, daily range): BP systolic 110–165; BP diastolic 57–94; PULSE 51–81; RESP 1–26; TEMP 36.6; O2SAT 91–99
--- NOTE | 2021-09-29 05:00 | RT.EKG_ITS ---
APPROVED REPORT Exam: Resting ECG Reason for Exam: chest pain Patient Location: E HR:74 bpm ECG Measurements Heart Rate 74 AXIS HI 132 P 80 QRSd 100 QRS 91 QT 385 T 38 QTc 428 Conclusion Sinus rhythm...normal P axis, V-rate 60- 99 Right atrial enlargement...P>0.25mV 2 lds or<-0.24mV aVR/aVL Physician: Rate 74, intervals stable, sinus rhythm, no significant ST elevation or depression. Q wav es present in lead III, no evidence of STEMI. Unchanged from prior EKG on 05/02/2021
[2021-09-29] MEDS: nitroGLYcerin 0.4 MG TAB SL (05:34)
[2021-09-29 05:38] LABS: Abs Immature Grans 0.01 10^3/uL (0.0-0.06); Absolute Basophil Count 0.07 10^3/uL (0.0-0.2); Absolute Eosinophil Count 0.11 10^3/uL (0.0-0.7); Absolute Lymphocyte Count 1.37 10^3/uL (1.2-3.4); Absolute Monocyte Count 0.53 10^3/uL (0.1-0.8); Absolute Neutrophil Count 4.08 10^3/uL (1.2-6.7); Basophils % 1.1; Eosinophils % 1.8; HCT 41.9 % (40.0-50.0); HGB 13.6 g/dL (13.5-17.5); Immature Grans % 0.2; Lymphocytes % 22.2; MCH 29.1 pg (27.0-33.0); MCHC 32.5 % (32.0-36.0); MCV 89.7 fL (80-95); MPV 9.9 fL (8.0-11.0); Monocytes % 8.6; Neutrophils % 66.1; Nucleated RBC 0 %; Platelet Count 269 10^3/uL (130-400); RBC 4.67 10^6/uL (4.36-5.78); RDW 12.5 % (11.8-14.1); RDW-SD 41.3 fL; WBC 6.17 10^3/uL (4.4-10.8)
[2021-09-29] MEDS: Albuterol/Ipratropium 3 ML UPD VIAL UPD (05:45)
[2021-09-29] MEDS: Aspirin 81 MG CHEW 324 MG CH (05:45)
--- NOTE | 2021-09-29 05:45 | W.ED.GENAD ---
Discharge Plan Disposition Patient Disposition: [facility] INPATIENT Condition: Stable Discharge Details Clinical Impression: Chest pain Admit Date/Time: 09/29/21 09:43 Admit Provider: Bety Guerrier Attending Provider: Bety Guerrier Primary Care Provider: [facility] Provider: Sean Bunch Discharge Data Discharge Date/Time-TO BE ENTERED AT DEPARTURE: 09/29/21 11:36 Medical Decision Making This is a 55-year-old male with a past medical history of hearing difficulty/partial deafness, myocardial infarction in 2013 with subsequent single stent, COPD, continued/regular tobacco use, family history of heart disease, a brother who had aortic dissection, who presents today for evaluation of chest pain. Patient states that over the last 2 days he has got notable tightness heaviness and pain in his left chest that radiates down his left arm when he is working exercising or exerting himself. He also admits to some slightly worsened shortness of breath and chest pain when doing normal activities like going up and down stairs and walking around. He does not feel like his COPD is any worse than normal. He denies any significant cough. He denies any tearing or ripping sensation. He denies any numbness particular. He states that this feels similar to his previous heart attack in 2014. Pain is made worse with activity, and improved with rest. Currently he describes his pain is 2 out of 10 predominantly in the left chest. No other complaints at this time. No other modifying factors. Physical exam demonstrates mild wheezes in the patient's lungs. Equal pulses, normal neurovascular exam. Differential is highest for unstable angina, asthma/COPD, and less likely dissection. This is on the differential though especially with family history. We will give nitroglycerin pain monitor for responsiveness. After this will give breathing treatment, evaluate for concerning etiologies, monitor closely and reassess. 7:05 AM Patient's laboratory work has returned normal, after nitroglycerin the patient had complete resolution of his chest pain. Feels much better. Troponin is negative, EKG is unchanged. D-dimer is normal, proBNP is normal. Symptoms inconsistent with massive PE, dissection, chest x-ray negative. Symptoms are likely related to his known cardiac disease. I did contact Dr. Guerrier and discussed the case with her. We are still waiting on the repeat troponin. If this is returned negative she will accept the patient for admission for serial troponins, stress testing, and further monitoring. 8 AM Laboratory work-up is returned stable, chest pain is 0 after nitroglycerin. Patient feels better. Because of the patient's elevated heart score, chest pain, clinical history, I do feel he would benefit from admission. Contacted the hospitalist Dr. Guerrier, she agrees with the assessment and plan. I have extensively reviewed the treatment plan with the patient. I have addressed all patient concerns at this time. I have also discussed the plan with the admitting physician and they agree with the current assessment and plan and have agreed to assume responsibility for the patient. All parties demonstrate verbal understanding and agreement with our assessment and plan at this time. The documentation in this chart was dictated using [employer] dictation software. Please excuse any dictation errors. EKG 5: 15 Rate 74, intervals stable, sinus rhythm, no significant ST elevation or depression. Q waves present in lead III, no evidence of STEMI. Unchanged from prior EKG on 05/02/2021 FINDINGS: Lungs: Unremarkable. No consolidation. Pleural spaces: Unremarkable. No pleural effusion. No pneumothorax. Heart/Mediastinum: Unremarkable. No cardiomegaly. Bones/joints: Unremarkable. IMPRESSION: No acute findings. Thank you for allowing us to participate in the care of your patient. Dictated and Authenticated by: Alpesh Mai MD 09/29/2021 6:58 AM Eastern Time ([place] & [place]) HPI General Date/Time Provider Initiated Documentation: 09/29/21 05:08. HPI Narrative: This is a 55-year-old male with a past medical history of hearing difficulty/partial deafness, myocardial infarction in 2013 with subsequent single stent, COPD, continued/regular tobacco use, family history of heart disease, a brother who had aortic dissection, who presents today for evaluation of chest pain. Patient states that over the last 2 days he has got notable tightness heaviness and pain in his left chest that radiates down his left arm when he is working exercising or exerting himself. He also admits to some slightly worsened shortness of breath and chest pain when doing normal activities like going up and down stairs and walking around. He does not feel like his COPD is any worse than normal. He denies any significant cough. He denies any tearing or ripping sensation. He denies any numbness particular. He states that this feels similar to his previous heart attack in 2013. Pain is made worse with activity, and improved with rest. Currently he describes his pain is 2 out of 10 predominantly in the left chest. No other complaints at this time. No other modifying factors. Related Data Home Medications Medication Instructions Recorded Confirmed albuterol 90 mcg/actuation aerosol 90 mcg IH PRN PRN 11/09/18 09/29/21 inhaler aspirin 81 mg tablet,delayed 81 mg PO DAILY 11/09/18 09/29/21 release hydrochlorothiazide 25 mg tablet 25 mg PO DAILY 11/09/18 09/29/21 ipratropium 0.5 mg-albuterol 3 mg 3 ml IH Q4H PRN 11/09/18 09/29/21 (2.5 mg base)/3 mL nebulization soln losartan 100 mg tablet 100 mg PO DAILY 11/09/18 09/29/21 Trelegy Ellipta 1 inh INHALATION DAILY 11/27/20 09/29/21 atorvastatin 80 mg PO DAILY 11/27/20 09/29/21 bupropion HCl 150 mg PO BID 11/27/20 09/29/21 cetirizine 10 mg PO DAILY 11/27/20 09/29/21 metoprolol succinate 25 mg PO DAILY 11/27/20 09/29/21 Allergies Allergy/AdvReac Type Severity Reaction Status Date / Time varenicline [From Chantix] Allergy Severe unknown Verified 09/29/21 05:22 fluticasone [From Flonase] Allergy Intermediate unknown Verified 09/29/21 05:22 salmeterol Allergy Intermediate unknown Verified 09/29/21 05:22 [From Advair Diskus] Penicillins Allergy Unknown Verified 09/29/21 05:22 tramadol Allergy Unknown Verified 09/29/21 05:22 General Stated Complaint: Chest Pain LOGAN: 2 Review of Systems All systems reviewed & are unremarkable except as noted in HPI and below PFSH Active Problem List COPD exacerbation (Acute) Pulmonary nodule (Acute) Diuretic-induced hypokalemia (Acute) Shellfish allergy (Acute) Colorectal polyps (Acute ~01/28/19) S/P colonoscopy (Acute ~01/28/19) Encounter for screening colonoscopy (Acute) Medical History Anemia Asthma Benign hypertension Bilateral deafness Centrilobular emphysema COPD (chronic obstructive pulmonary disease) Hyperlipidemia Myocardial infarct Pulmonary nodule Tobacco abuse Surgical History History of coronary artery stent placement Social History Smoking/Tobacco Use Status: Current every day Tobacco Type: cigarettes Smoking risk assessment performed?: Yes Alcohol Intake: current Alcohol Intake frequency: a few times a week Alcohol type: beer Drug use: Occasionally Substance use type: marijuana Details: 2 weeks ago Do you feel safe at home: Yes Do you feel safe in your relationship?: Yes Exam Narrative Exam Narrative: 1.Const: Well-nourished, Well-developed, appearing stated age 2.Eyes: PERRL, no conjunctival injection, and symmetrical lids. 3.ENT: Atraumatic external nose and ears. Moist MM. Neck: Symmetric, trachea midline, No thyromegaly. 4.CVS: +S1/S2, No murmurs or gallops. Peripheral pulses 2+ and equal in all extremities. Brisk capillary refill in all extremities. Radial pulses equal bilaterally 5.RESP: Unlabored respiratory effort. Mild wheezes throughout. No crackles or rhonchi. 6.GI: Soft, Nontender/Nondistended, No hepatosplenomegaly. No guarding or rebound. 7.MSK: Normocephalic/Atraumatic, Extremities w/o deformity or ttp No cyanosis or clubbing, Normal movement of all extremities 8.Skin: Warm, Dry. No rashes or lesions. 9.Neuro: data quality consultant II-XII grossly intact. Sensation grossly intact, no focal neurologic deficits. 10.Psych: (AAO) x3. Appropriate mood and affect Course Vital Signs Vital signs: Vital Signs Pulse 81 09/29/21 05:11 Respiratory Rate 19 09/29/21 05:11 Blood Pressure 165/86 H 09/29/21 05:11 Pulse Oximetry 98 09/29/21 05:11 Temperature Source Skin 09/29/21 05:11 Pulse 81 09/29/21 05:11 Respiratory Rate 19 09/29/21 05:11 Blood Pressure 165/86 H 09/29/21 05:11 Blood Pressure Position Sitting 09/29/21 05:11 Pulse Oximetry 98 09/29/21 05:11 Oxygen Delivery Method Room Air 09/29/21 05:11 Oxygen Flow Rate 0 09/29/21 05:11 Pain Level 0 09/29/21 05:39 Lab/Test Results Lab/Test Results: Laboratory Tests Range/Units 09/29/21 05:30 WBC (4.4-10.8) 10^3/uL 6.17 RBC (4.36-5.78) 10^6/uL 4.67 Hgb (13.5-17.5) g/dL 13.6 Hct (40.0-50.0) % 41.9 MCV (80-95) fL 89.7 MCH (27.0-33.0) pg 29.1 MCHC (32.0-36.0) % 32.5 RDW (11.8-14.1) % 12.5 Plt Count (130-400) 10^3/uL 269 MPV (8.0-11.0) fL 9.9 Immature Gran % 0.2 Neutrophils % 66.1 Lymphocytes % 22.2 Monocytes % 8.6 Eosinophils % 1.8 Basophils % 1.1 Nucleated RBC % % 0 Absolute Neutrophils (1.2-6.7) 10^3/uL 4.08 Absolute Lymphocytes (1.2-3.4) 10^3/uL 1.37 Absolute Monocytes (0.1-0.8) 10^3/uL 0.53 Absolute Eosinophils (0.0-0.7) 10^3/uL 0.11 Absolute Basophils (0.0-0.2) 10^3/uL 0.07
[2021-09-29 06:01] LABS: ALT 26 U/L (16-63); AST 19 U/L (15-37); Alkaline Phosphatase 60 U/L (46-116); Anion Gap 6.7 mmol/L (3-11); BUN 19 mg/dL (7-18); Bilirubin, Total 0.5 mg/dL (0.2-1.0); CO2 30.3 mmol/L (21.0-32.0); CREATININE 0.9 mg/dL (0.70-1.30); Calcium 8.7 mg/dL (8.5-10.1); Chloride 100 mmol/L (98-107); Glucose 105 mg/dL (74-106); Magnesium 2.2 mg/dL (1.8-2.4); NT-proBNP 127 pg/mL (<300); Potassium 3.6 mmol/L (3.5-5.1); Sodium 137 mmol/L (136-145); Total Protein 7.3 g/dL (6.4-8.2)
[2021-09-29 06:06] LABS: Troponin I < 0.05 ng/mL (<0.06)
[2021-09-29 06:07] LABS: PTT Activated 23.4 sec (21.0-27.5); Prothrombin Time 9.9 sec (9.3-11.0)
[2021-09-29 06:14] LABS: D-Dimer 344 ng/mlFEU (<500)
--- NOTE | 2021-09-29 06:15 | DI.RAD_ITS ---
Exam(s) XR PORTABLE CHEST AP EXAM: XR PORTABLE CHEST AP CLINICAL HISTORY: chest pain, sob TECHNIQUE: 2D digital imaging was performed of the chest. One image was obtained. An AP view was ob tained. COMPARISON: CR,XR XR CHEST 2V PA LATERAL from 05/02/2021 CR,XR XR CHEST 2V PA LATERAL from 05/02/2021 FINDINGS: MEDIASTINUM: Normal. HEART: Normal. PULMONARY VASCULATURE: Normal. LUNGS: Clear. PLEURAL SPACE: No pleural effusion or pneumothorax. BONE:Within normal limits for the patient's age. OTHER FINDINGS:Nipple shadows are again seen. IMPRESSION: No acute pulmonary findings. DATA REPOSITORY: RADIATION DOSE DELIVERED:
[2021-09-29 06:37] LABS: Source Nasal/Nares
--- NOTE | 2021-09-29 06:58 | DI.VRAD_ITS ---
PROCEDURE INFORMATION: Exam: XR Chest Exam date and time: 09/29/2021 6:17 AM Age: 55 years old Clinical indication: Shortness of breath; Chest pressure; Patient HX: Chest pain, SOB TECHNIQUE: Imaging protocol: XR of the chest. Views: 1 view. COMPARISON: CR XR CHEST 2V PA LATERAL 05/02/2021 9:45 PM FINDINGS: Lungs: Unremarkable. No consolidation. Pleural spaces: Unremarkable. No pleural effusion. No pneumothorax. Heart/Mediastinum: Unremarkable. No cardiomegaly. Bones/joints: Unremarkable. IMPRESSION: No acute findings. Dictated and Authenticated by: Alpesh Mai MD. Ordering:IMMANUEL Estrada MD
[2021-09-29 09:31] LABS: Troponin I < 0.05 ng/mL (<0.06)
[2021-09-29 09:43] LABS: COVID-19 PCR Negative (Negative)
--- NOTE | 2021-09-29 09:49 | W.PM.HP.N ---
Date of service: 09/29/21 Time of Service: 09:50 Assessment and Plan Assessment and plan (1) Chest pain: Status: Acute Assessment and plan: referred to obs for r/o and stress testing in am. serial troponins telemetry hold beta-elyse for stress testing cont asa and statin (2) COPD (chronic obstructive pulmonary disease): Assessment and plan: stable, continue home medication (3) Benign hypertension: Assessment and plan: continue home meds and monitor (4) Tobacco abuse: Assessment and plan: nicotine replacement while hospitalized will discuss smoking cessation (5) Bilateral deafness: Assessment and plan: ensure appropriate communication and understanding. clear masks as he reads lips, white board, etc discussed with DR Guerrier History of Present Illness History of Present Illness Chief Complaint: chest pain Narrative: This is a 55-year-old male with a past medical history of hearing difficulty/partial deafness, myocardial infarction in 2013 with subsequent single stent, COPD, continued/regular tobacco use, family history of heart disease, a brother who had aortic dissection, who presented to the ED for evaluation of chest pain over the last 2 days reporting that he has got notable tightness heaviness and pain in his left chest that radiates down his left arm when he is working exercising or exerting himself. He also admits to some slightly worsened shortness of breath and chest pain when doing normal activities like going up and down stairs and walking around. He was given nitroglycerin which relieved his pain. His initial cardiac work up in the ED was unremarkable. Negative troponin and no acute st segment changes on his EKG. He had a repeat troponin in the ED which was also normal. he had no reoccurrence of his chest pain. He is hemodynamically stable and will be admitted to [facility] for formal rule out and stress test in am. Review of Systems All systems reviewed & are unremarkable except as noted in HPI and below Constitutional Constitutional: Denies fever(s) and Denies weakness Cardiovascular Cardiovascular: Reports chest pain, Denies leg edema, Denies lightheadedness, Denies palpitations, Reports dyspnea and Reports dyspnea on exertion Respiratory Respiratory: Reports dyspnea and Reports dyspnea on exertion Gastrointestinal Gastrointestinal: Denies abdominal pain and Denies nausea Neurologic Neurologic: Denies weakness Endocrine Endocrine: Denies palpitations [facility] Active Problem List COPD exacerbation (Acute) Pulmonary nodule (Acute) Diuretic-induced hypokalemia (Acute) Shellfish allergy (Acute) Colorectal polyps (Acute ~01/28/19) S/P colonoscopy (Acute ~01/28/19) Encounter for screening colonoscopy (Acute) Medical History Anemia Asthma Benign hypertension Bilateral deafness Centrilobular emphysema COPD (chronic obstructive pulmonary disease) Hyperlipidemia Myocardial infarct Pulmonary nodule Tobacco abuse Surgical History History of coronary artery stent placement Social History Smoking/Tobacco Use Status: Current every day Tobacco Type: cigarettes Smoking risk assessment performed?: Yes Alcohol Intake: current Alcohol Intake frequency: a few times a week Alcohol type: beer Drug use: Occasionally Substance use type: marijuana Details: 2 weeks ago Do you feel safe at home: Yes Do you feel safe in your relationship?: Yes Meds Allergies and Home Medications Allergies Allergy/AdvReac Type Severity Reaction Status Date / Time varenicline [From Chantix] Allergy Severe unknown Verified 09/29/21 05:22 fluticasone [From Flonase] Allergy Intermediate unknown Verified 09/29/21 05:22 salmeterol Allergy Intermediate unknown Verified 09/29/21 05:22 [From Advair Diskus] Penicillins Allergy Unknown Verified 09/29/21 05:22 tramadol Allergy Unknown Verified 09/29/21 05:22 Home Medications Medication Instructions Recorded Confirmed Type albuterol 90 mcg/actuation aerosol 90 mcg IH PRN PRN 11/09/18 09/29/21 History inhaler aspirin 81 mg tablet,delayed 81 mg PO DAILY 11/09/18 09/29/21 History release hydrochlorothiazide 25 mg tablet 25 mg PO DAILY 11/09/18 09/29/21 History ipratropium 0.5 mg-albuterol 3 mg 3 ml IH Q4H PRN 11/09/18 09/29/21 History (2.5 mg base)/3 mL nebulization soln losartan 100 mg tablet 100 mg PO DAILY 11/09/18 09/29/21 History Trelegy Ellipta 1 inh INHALATION DAILY 11/27/20 09/29/21 History atorvastatin 80 mg PO DAILY 11/27/20 09/29/21 History bupropion HCl 150 mg PO BID 11/27/20 09/29/21 History cetirizine 10 mg PO DAILY 11/27/20 09/29/21 History metoprolol succinate 25 mg PO DAILY 11/27/20 09/29/21 History Exam Const General: cooperative, comfortable and no acute distress Nutritional Appearance: average body habitus Orientation: alert, awake and oriented x3 HENMT Head: normal to inspection, normocephalic and atraumatic Mouth: oral mucosae normal Chest Chest: normal inspection of the chest Resp Effort & Inspection: normal respiratory effort Auscultation: clear to auscultation bilaterally Cardio Rate: regular rate Rhythm: regular rhythm Heart Sounds: no murmurs GI Inspection: normal to inspection Neuro General: patient alert, patient awake and patient oriented x3 Speech: abnormal speech other (deaf, ) Extrem General: normal to inspection, full ROM and no pedal edema Results Labs Result diagrams: 09/29/21 05:30 09/29/21 05:30 Labs: Laboratory Results - last 24 hr 09/29/21 09/29/21 09/29/21 05:30 05:30 05:30 WBC 6.17 RBC 4.67 Hgb 13.6 Hct 41.9 MCV 89.7 MCH 29.1 MCHC 32.5 RDW 12.5 Plt Count 269 MPV 9.9 Immature Gran % 0.2 Neutrophils % 66.1 Lymphocytes % 22.2 Monocytes % 8.6 Eosinophils % 1.8 Basophils % 1.1 Nucleated RBC % 0 Absolute Neutrophils 4.08 Absolute Lymphocytes 1.37 Absolute Monocytes 0.53 Absolute Eosinophils 0.11 Absolute Basophils 0.07 PT 9.9 INR 1.0 APTT 23.4 D-Dimer 344 Sodium 137 Potassium 3.6 Chloride 100 Carbon Dioxide 30.3 Anion Gap 6.7 BUN 19 H Creatinine 0.9 Estimated GFR/1.73 m2 >= 60.00 Glucose 105 Calcium 8.7 Magnesium 2.2 Total Bilirubin 0.5 AST 19 ALT 26 Alkaline Phosphatase 60 Troponin I < 0.05 NT-Pro-B Natriuret Pep 127 Total Protein 7.3 Albumin 4.0 COVID-19 Source SARS-CoV-2 (PCR) 09/29/21 09/29/21 06:30 08:50 WBC RBC Hgb Hct MCV MCH MCHC RDW Plt Count MPV Immature Gran % Neutrophils % Lymphocytes % Monocytes % Eosinophils % Basophils % Nucleated RBC % Absolute Neutrophils Absolute Lymphocytes Absolute Monocytes Absolute Eosinophils Absolute Basophils PT INR APTT D-Dimer Sodium Potassium Chloride Carbon Dioxide Anion Gap BUN Creatinine Estimated GFR/1.73 m2 Glucose Calcium Magnesium Total Bilirubin AST ALT Alkaline Phosphatase Troponin I < 0.05 NT-Pro-B Natriuret Pep Total Protein Albumin COVID-19 Source Nasal/Nares SARS-CoV-2 (PCR) Negative Last Vital Signs Pulse 55 L 09/29/21 07:16 Resp 20 09/29/21 07:16 BP 125/81 09/29/21 07:16 Pulse Ox 91 L 09/29/21 07:16
--- NOTE | 2021-09-29 10:15 | DI.US_ITS ---
APPROVED REPORT EXAM: Comprehensive 2D, Doppler, and color-flow Echocardiogram Patient Location: ER Room/Bed: 1 Computer Engineering Professor: Nica Alarcon RDCS (AE) Indications: Chest pain Other Information Study Quality: Adequate Conclusion Normal left ventricular wall thickness and chamber size. Estimated ejection fraction is 60%. There are no segmental wall motion abnormalities Normal right ventricular size and systolic function Both atria are normal in size The aortic valve is trileaflet and mildly sclerotic without stenosis or regurgitation Mildly dilated ascending aorta measuring 3.76 cm Wall motion Left Ventricle The left ventricle is grossly normal size. Left ventricle is borderline dilated. Left ventricle is mi ldly dilated. The left ventricular systolic function is normal. The left ventricular ejection fractio n is within the normal range. There is normal left ventricular wall thickness. There is normal LV seg mental wall motion. There is no ventricular septal defect visualized. LVEF is 59%. Right Ventricle The right ventricle is normal size. The right ventricular systolic function is normal. Atria The left atrium size is normal. The right atrium size is normal. The interatrial septum is intact wit h no evidence for an atrial septal defect. Aortic Valve The aortic valve is mildly sclerotic Aortic valve is trileaflet. There is no aortic valvular stenosis . No aortic regurgitation is present. Mitral Valve The mitral valve is normal in structure. No evidence of mitral valve stenosis. Trace mitral regurgita tion. Tricuspid Valve The tricuspid valve is normal in structure. There is no tricuspid valve stenosis. Trace tricuspid reg urgitation. Unable to assess PA pressure. Pulmonic Valve The pulmonary valve is normal in structure. There is no pulmonic valvular stenosis. There is no pulmo marylin valvular regurgitation. Great Vessels The aortic root is normal in size. The ascending aorta is mildly dilated.3.76 cm Ascending aorta is n ot well visualized. IVC is normal in size and collapses >50% with inspiration. Pericardium There is no pericardial effusion. 2D Dimensions IVSD d PLAX 1.05 cm M: 0.6-1.2 LV Vol A2C d MOD 131.9 mL LVPW d PLAX 1.04 cm M: 0.6 - 1.2 LV Vol A4C d MOD 109.3 mL LVID d PLAX 4.91 cm M: 4.2 - 5.8 LA vol/ BSA A2C s A-L 26.4 mL/m2 LVDs 3.30 cm M: 2.5 - 4.0 LA vol/ BSA A4C s A-L 21.9 mL/m2 Ao Root d 3.00 cm M: 3.1 - 3.7 LA Vol/ BSA Biplane s A-L 24.7 mL/m2 RA Area A4C 12.15 cm2 LA Area A4C s MOD 17.71 cm2 RA Vol/ BSA A4C s A-L 13.1 mL/m2 LA Area A2C s MOD 18.94 cm2 Ao Asc Diam d 3.76 cm M: 2.6 - 3.4 LV EF A4C MOD 59.8 % LV EF Teichholz 60.9 % LV EF A2C MOD 59.2 % LVEF (Nuñez's) 60.09 % M: 52 - 72 LV EF Biplane MOD 60.1 % LV Volume 89.05 mL M: 62 - 150 SV 73.05 mL LV Volume Index 41.41 mL/m2 M: 34 - 74 SV Index 33.98 mL/m2 LV Vol Biplane MOD 121.6 mL FS 32.65 % M-Mode TAPSE 2.33 cm (M/F) >1.7 LV Diastology MV E' medial 0.096 (>0.07 m/s) E/A Ratio 0.9 LV E/e MED 8.00 (<14) MV E Vmax 0.77 (0.4-1.3 m/s) MV E' lateral 0.115 (>0.1 m/s) MV A Vmax 0.90 (0.4-1.3 m/s) LV E/e LAT 6.65 (<14) MV E/A Ratio 0.84 MV E/E' medial 8.01 MV E/E' lateral 6.66 Aortic Valve LVOT Area 3.10 cm2 AoV Area Vmax 3.11 cm2 LVOT Vmax 1.31 m/s AoV Area/ BSA (Vmax) 1.44 cm2/m2 LVOT Mean Tremaine. 0.76 m/s VIPUL Mean Tremaine. 2.58 cm2 LVOT Peak Grad 6.9 mmHg VIPUL Mean Tremaine. Index 1.20 cm2/m2 LVOT Mean Grad 2.9 mmHg LVOT VTI 0.288 m LVOT Diam s 1.95 cm AoV Vmax 1.31 m/s Velocity Ratio 1.00 AoV Mean Tremaine. 0.92 m/s AoV Peak Grad 6.9 mmHg LVOT SV 89.38 mL AoV Mean Grad 3.7 mmHg AoV VTI 0.262 m AoV Area VTI 3.41 cm2 AoV Area/ BSA (VTI) 1.59 cm/m2 Mitral Valve MV DT 236 (160-240 msec) MV PHT 68 msec MV Area PHT 3.21 cm2 MV VTI 0.447 m MV Area VTI 2.00 (4.0-6.0 cm2) Pulmonary Valve PV Vmax 1.01 (0.5-1.5 m/s) RVOT Peak Gr. 2.70 mmHg PV Peak Grad 4.1 mmHg RVOT Mean Gr. 1.40 mmHg PV Mean Grad 2.0 mmHg RVOT VTI 0.189 m PV VTI 0.218 m RVOT Vmax 0.82 m/s
[2021-09-29] MEDS: Enoxaparin 40 MG/0.4 ML SYR SC (12:28)
[2021-09-29 14:44] LABS: Troponin I < 0.05 ng/mL (<0.06)
[2021-09-29] MEDS: Acetaminophen 325 MG TAB PO (16:59)
[2021-09-29] MEDS: buPROPion-CR 150 MG TABCR PO (20:08)
[2021-09-30 00:15] VITALS: BP 121/72; PULSE 65; RESP 22; TEMP 36.8; O2SAT 93
[2021-09-30 03:41] VITALS: BP 148/86; PULSE 61; RESP 17; TEMP 36.5; O2SAT 96
[2021-09-30] MEDS: Normal Saline Flush 10 ML SYR IVP (05:35)
[2021-09-30 07:00] VITALS: PULSE 52
[2021-09-30 07:24] VITALS: BP 139/86; PULSE 60; RESP 18; TEMP 36.2; O2SAT 97
[2021-09-30 07:46] LABS: HCT 40.4 % (40.0-50.0); HGB 13.1 g/dL (13.5-17.5); MCH 28.9 pg (27.0-33.0); MCHC 32.4 % (32.0-36.0); MCV 89.2 fL (80-95); MPV 10.3 fL (8.0-11.0); Platelet Count 269 10^3/uL (130-400); RBC 4.53 10^6/uL (4.36-5.78); RDW 12.5 % (11.8-14.1); WBC 5.02 10^3/uL (4.4-10.8)
--- NOTE | 2021-09-30 08:00 | DI.NM_ITS ---
APPROVED REPORT Exam: Exercise Treadmill, Pharmacologic Patient Location: In-Patient Room/Bed: 226 Stress Nurse: Aydee Barnett RN Ordering Provider:ANGELIKA PINEDA, Contact Number: [phone] BMI: 25.41 Baseline Rhythm: Sinus Bradycardia Indications: Chest pain relieved with nitroglycerin Medical History Medical History: Hypertension, hyperlipidemia, smoker (current), COPD, pulmonary nodule, centrilobula r emphysema, bilateral deafness Cardiac Medications: Metoprolol succinate, losartan, HCTZ, atorvastatin, aspirin, albuterol, trelegy, buproprion Allergies: Carenicline, shellfish, tramadol, fluticasone, salmeterol, penicillin Cardiac Risk Factors: Hypertension, hyperlipidemia, smoker (current), COPD Previous Cardiac Procedures: TN w/ ANDRIA 2013 Pretest Chest Pain Characteristics: baseline mild SOB w/ COPD Exercise History: Indeterminate Physical Disabilities: None Lung Sounds: inspiratory and expiratory wheezes bilateral lobes Heart Sounds: Regular Stress Test Details Test: Exercise stress converted to pharmacologic stress due to failure to obtain a diagnostic stress test. Reason for pharmacologic stress test: changed from exercise stress test due to inability to reach t arget heart rate. Nuclear Acquisition: Rest Tc-99m/Stress Tc-99m 1 day Rest Isotope: Tc-99m Sestamibi. Dose: 10.8 Date: 09/30/2021 Injection Time: 1125 Stress Isotope: Tc-99m Sestamibi. Dose: 30.8 Date: 09/30/2021 Injection Time: 1310 HR Resting HR Supine: 58 bpm Max Heart Rate (APMHR): 165.996365 bpm Resting HR Standin bpm Target HR (85% APMHR): 140.376502 bpm Max HR Achieved: 121 bpm % of APMHR: 73.33 Recovery HR: 84 bpm HR response to stress: Normal HR response to stress Comment: Nondiagnostic, THR not reached BP Resting BP Supine: 148/78 mmHg Resting BP Standin/82 mmHg Max BP: 174/76 mmHg Recovery BP: 138/72 mmHg BP response to stress: Normal blood pressure response to stress. ECG Resting ECG: Sinus Bradycardia Ectopy: None Stress ECG: Sinus Tachycardia ST Change: No significant ST segment changes noted Arrhythmia: Burst of bigeminy Recovery ECG: Sinus Rhythm Recovery ST Change: Horizontal ST depression Recovery Arrhythmia: Rare PVC Clinical Reason for Termination: Fatigue, Dyspnea Stress Symptoms: General Fatigue, Dyspnea Highest Stage Reached: Stage 2: 2.5 mph at 12% grade. Exercise capacity: 6.75 METs Rate Pressure Product: [id number] Stress ECG Conclusion 1. Resting electrocardiogram was within normal limits 2. Patient exercised on the Brian protocol and completed a workload of 6.75 METS, limited by fatigue and dyspnea 3. Normal heart rate and blood pressure response to exercise. Regadenoson was administered due to fa ilure to achieve adequate heart rate. Peak heart rate was 73% of maximal predicted for age 4. Electrocardiographically the test was nondiagnostic due to inadequate heart rate 5. Rare PVCs Stress Test Summary STAGE Time (mins) Speed (mph) Grade (%) HR BP SYMPTOMS METS Supine 58 148/78 Standing 78 144/82 Baseline mild SOB w/ COPD, SpO2 95% 1 3 1.7 10 107 168/80 SpO2 94% 4.6 2 6 2.5 12 121 Moderate-severe SOB, SpO2 94% 7 1 min post Lexiscan injection 118 174/76 Symptoms resolving, SpO2 97% 3 min post Lexiscan injection 98 162/82 SpO2 95% 6 min post Lexiscan injection 84 138/72 SOB back to baseline mild, SpO2 95% During second stage of Brian protocol patient ended exercise due to moderate-severe SOB. Lexiscan inj ection given. Pt tolerated medication well. SOB resolved by 6th minute of recovery. MPI Conclusion There is no myocardial ischemia. There is a fixed inferobasal defect EF 48%. Inferobasal segment is hypocontractile Radiologist Interpretation Radiologist Interpretation by: Ezequiel Bell MD Interpretation Date/Time: 10/01/2021 16:02:29
[2021-09-30 08:23] LABS: Anion Gap 7.5 mmol/L (3-11); BUN 23 mg/dL (7-18); CO2 27.5 mmol/L (21.0-32.0); CREATININE 0.9 mg/dL (0.70-1.30); Calcium 8.5 mg/dL (8.5-10.1); Chloride 106 mmol/L (98-107); Glucose 105 mg/dL (74-106); Magnesium 2.4 mg/dL (1.8-2.4); Potassium 3.9 mmol/L (3.5-5.1); Sodium 141 mmol/L (136-145)
[2021-09-30 08:25] LABS: Troponin I < 0.05 ng/mL (<0.06)
[2021-09-30] MEDS: Acetaminophen 325 MG TAB PO (08:37)
[2021-09-30] MEDS: buPROPion-CR 150 MG TABCR PO (08:38)
[2021-09-30] MEDS: Aspirin E.C. 81 MG TABEC PO (08:38)
[2021-09-30] MEDS: Atorvastatin 40 MG TAB 80 MG PO (08:38)
[2021-09-30] MEDS: Cetirizine 10 MG TAB PO (08:39)
[2021-09-30] MEDS: Albuterol/Ipratropium 3 ML UPD VIAL IH (08:47)
[2021-09-30 10:48] LABS: Hemoglobin A1C 5.8 % (<5.7)
[2021-09-30] MEDS: Enoxaparin 40 MG/0.4 ML SYR SC (11:39)
[2021-09-30 12:07] VITALS: BP 120/66; PULSE 61; RESP 18; TEMP 36.4; O2SAT 95
[2021-09-30] MEDS: Regadenoson 0.4 MG/5 ML SYR IVP (13:37)
--- NOTE | 2021-09-30 15:27 | DSE_ITS ---
Date of service: 09/30/21 Time of Service: 15:27 DS: Diagnosis Discharge Diagnosis (1) Chest pain: Status: Acute (2) COPD (chronic obstructive pulmonary disease): (3) Benign hypertension: (4) Tobacco abuse: (5) Bilateral deafness: Discharge Plan Disposition Patient Disposition: HOME Condition: Stable Discharge Details Reason For Visit: Chest Pain Admit Date/Time: 09/29/21 09:43 Admit Provider: Bety Guerrier Attending Provider: Bety Guerrier Primary Care Provider: [facility] Hospital Course: This is a 55-year-old male with a past medical history of hearing difficulty/partial deafness, myocardial infarction in 2013 with subsequent single stent, COPD, continued/regular tobacco use, family history of heart disease, a brother who had aortic dissection, who presented to the ED for evaluation of chest pain over the last 2 days reporting that he has got notable tightness heaviness and pain in his left chest that radiates down his left arm when he is working exercising or exerting himself. He also admits to some slightly worsened shortness of breath and chest pain when doing normal activities like going up and down stairs and walking around. He was given nitroglycerin which relieved his pain. His initial cardiac work up in the ED was unremarkable. Negative troponin and no acute st segment changes on his EKG. He had a repeat troponin in the ED which was also normal. he had no reoccurrence of his chest pain. He was hemodynamically stable admitted [place] [facility] [place] rule out and stress test in am. Overnight he rested comfortably with no further chest pain or pressure. His troponins remained negative. He completed his stress test and no ischemic changes noted, he had on fixed deficit thought possibly d/t artifact. He should f/u outpatient with pcp and cardiology if ongoing or recurrent symptoms. no services, no medication changes. work note to return on Monday discharge discussed with Dr Guerrier Home Meds and New Rx's Prescriptions: Continued ipratropium-albuterol 0.5 mg-3 mg(2.5 mg base)/3 mL solution for nebulization 3 ml IH Q4H PRNRF: 0 losartan 100 mg tablet 100 mg PO DAILY RF: 0 hydrochlorothiazide 25 mg tablet 25 mg PO DAILY RF: 0 aspirin [Adult Low Dose Aspirin] 81 mg tablet,delayed release (DR/EC) 81 mg PO DAILY RF: 0 albuterol 90 mcg/actuation aerosol 90 mcg IH PRN PRNRF: 0 Trelegy Ellipta 100-62.5-25 mcg blister with device 1 inh INHALATION DAILY RF: 0 bupropion HCl 150 mg tablet sustained-release 12 hr 150 mg PO BID RF: 0 atorvastatin 80 mg tablet 80 mg PO DAILY RF: 0 cetirizine 10 mg tablet 10 mg PO DAILY RF: 0 metoprolol succinate 25 mg tablet extended release 24 hr 25 mg PO DAILY RF: 0 Discharge Instructions Instructions: Chest Pain (DC) Additional Instructions: resume usual medication. Stand Alone Forms: Nursing Discharge Form Referrals: [facility] [Primary Care Provider] - (Please call you PCP to schedule a follow up appointment for 1-2 weeks.) Activity:: Activity as Tolerated Equipment/Supplies:: No Equipment Needed Diet:: As Tolerated Discharge Orders Discharge Orders: Discharge Order (Routine); Ordered 09/30/21 Ordered By: Dorota Hope DS: Summary Time Spent with Patient providing and/or coordinating discharge services: Less than 30 minutes Status at Discharge Functional status at discharge: independent ambulation Overall status at discharge: patient is back to baseline Mental Status: mental status grossly normal Speech and Movement: other (deaf) Mood: congruent mood Affect: normal affect Exam Const General: cooperative, comfortable and no acute distress Nutritional Appearance: average body habitus Orientation: alert, awake and oriented x3 HENMT Head: normal to inspection, normocephalic and atraumatic Mouth: oral mucosae normal Chest Chest: normal inspection of the chest Resp Effort & Inspection: normal respiratory effort Auscultation: clear to auscultation bilaterally Cardio Rate: regular rate Rhythm: regular rhythm Heart Sounds: no murmurs GI Inspection: normal to inspection Neuro General: patient alert, patient awake and patient oriented x3 Speech: abnormal speech other (deaf, ) Extrem General: normal to inspection, full ROM and no pedal edema Psych Mental Status: mental status grossly normal Mood: congruent mood Affect: normal affect DS: Data Vitals/I&O Vitals and I&O: Vital Signs Temperature 36.4 C L 09/30/21 12:07 Temperature Source Tympanic 09/30/21 12:07 Pulse 61 09/30/21 12:07 Pulse Rhythm Regular 09/30/21 10:30 Pulse 62 12/08/21 09:50 Respiratory Rate 18 09/30/21 12:07 Respiratory Effort 09/30/21 10:30 Respiratory Depth Normal 09/30/21 10:30 Respiratory Pattern Normal 09/30/21 10:30 Blood Pressure 120/66 09/30/21 12:07 Blood Pressure Mean 80 09/29/21 09:46 Blood Pressure Position Sitting 09/29/21 05:11 Pulse Oximetry 95 09/30/21 12:07 Oxygen Delivery Method Room Air 09/30/21 12:07 Oxygen Flow Rate 0 09/30/21 12:07 Pain Level 5 09/30/21 12:07 Comment 09/30/21 12:07 Intake & Output 09/29/21 09/30/21 09/30/21 23:59 11:59 23:59 Intake Total 980 / 980 Balance 980 / 980 Weight 86.863 kg Intake: IV Oral 970 / 970 Other: Comment patient removed measuring hat and voided directly in toilet. Data Completed and Pending Labs on day of discharge: Labs from last 24 hours 09/30/21 09/30/21 09/30/21 07:25 07:15 07:15 WBC 5.02 RBC 4.53 Hgb 13.1 L Hct 40.4 MCV 89.2 MCH 28.9 MCHC 32.4 RDW 12.5 Plt Count 269 MPV 10.3 Sodium 141 Potassium 3.9 Chloride 106 Carbon Dioxide 27.5 Anion Gap 7.5 BUN 23 H Creatinine 0.9 Estimated GFR/1.73 m2 >= 60.00 Glucose 105 Hemoglobin A1c 5.8 H Calcium 8.5 Magnesium 2.4 Troponin I < 0.05 PFSH All Active Problems (Updated 09/29/21 @ 07:31 by Sean Bunch DO) COPD exacerbation (Acute) Pulmonary nodule (Acute) Diuretic-induced hypokalemia (Acute) Chest pain (Acute) Shellfish allergy (Acute) Colorectal polyps (Acute ~01/28/19) S/P colonoscopy (Acute ~01/28/19) Encounter for screening colonoscopy (Acute) Active Problem List COPD exacerbation (Acute) Pulmonary nodule (Acute) Diuretic-induced hypokalemia (Acute) Shellfish allergy (Acute) Colorectal polyps (Acute ~01/28/19) S/P colonoscopy (Acute ~01/28/19) Encounter for screening colonoscopy (Acute) Medical History Anemia Asthma Benign hypertension Bilateral deafness Centrilobular emphysema COPD (chronic obstructive pulmonary disease) Hyperlipidemia Myocardial infarct Pulmonary nodule Tobacco abuse Surgical History History of coronary artery stent placement Social History Smoking/Tobacco Use Status: Current every day Tobacco Type: cigarettes Smoking risk assessment performed?: Yes Alcohol Intake: current Alcohol Intake frequency: a few times a week Alcohol type: beer Drug use: Occasionally Substance use type: marijuana Details: 2 weeks ago Do you feel safe at home: Yes Do you feel safe in your relationship?: Yes
[2021-09-30 16:11] VITALS: BP 126/72; PULSE 61; RESP 12; TEMP 36.4; O2SAT 95
--- NOTE | 2021-09-30 17:03 | PDOC.CMDIS ---
- If Service Date Differs Date of service: 09/30/21 Time of Service: 17:03 LACE Index Scoring Tool - Questions: Length of Stay (in days): 1 Acuity (Admit via E.D.?): Yes Comorbidities: Previous M.I., Chronic Pulmonary Disease E.D. Visits: 3 - Answers: Total Score: 10 Risk of Readmission: High Risk Care Management Discharge Reason for Hospitalization: Chest Pain Discharge Plan: Discharge home via private vehicle. Follow up with PCP and discharge plan of care as prescribed. Letter to return to work given to patient. Patient/Family Education Needs: Review discharge instructions, limitations and plan to follow up with community providers. ask me three.
--- NOTE | 2021-09-30 17:08 | INITIAL_ITS ---
- If Service Date Differs Date of service: 09/30/21 Time of Service: 17:08 Care Management Initial Assess REASON FOR HOSPITALIZATION:: Chest Pain PAST MEDICAL HISTORY/PAST SURGICAL HISTORY:: Active Problem List . COPD exacerbation (Acute). Pulmonary nodule (Acute). Diuretic-induced hypokalemia (Acute). Shellfish allergy (Acute). Colorectal polyps (Acute ~01/28/19). S/P colonoscopy (Acute ~01/28/19). Encounter for screening colonoscopy (Acute). Medical History . Anemia. Asthma. Benign hypertension. Bilateral deafness. Centrilobular emphysema. COPD (chronic obstructive pulmonary disease). Hyperlipidemia. Myocardial infarct. Pulmonary nodule. Tobacco abuse. Surgical History . 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 He is deaf but lip reads well and often communicates through writing. He drives and is independent at baseline. He is currently employed by [employer]. CURRENT FUNCTIONAL STATUS:: Catalino was sitting up in bed when CM met with him. He has been asymptomatic during his hospital stay and is hoping to be discharged home today since he's having trouble with his heating system at home. He would like to return to work early next week and would appreciate a work note when he is discharged. ADVANCE DIRECTIVES:: None, gave patient a copy to review. Has patient been provided with info about the portal/API?: Yes Did the patient sign up for the portal?: Yes CODE STATUS:: Full Code INSURANCE COVERAGE / FINANCIAL ISSUES:: Medicaid. Medicare CURRENT HOME/COMMUNITY SERVICES/EQUIPMENT:: None PRIMARY CARE PHYSICIAN:: Chiquita Hill PATIENT/FAMILY EDUCATION NEEDS:: Review discharge instructions, limitations and plan to follow up with communuty providers. ask me three. TRANSPORTATION:: via private vehicle located in the parkinglot. PLAN:: Discharge home via private vehicle when medically cleared by provider. Follow up with PCP and discharge plan of care as prescribed.
== END 2021-09-30 17:12 | disposition home or self-care (01) ==
LOC: ER 07:31 → MS 11:41
PROVIDERS: Admitting Provider Internal Medicine; Emergency Provider Student in an Organized Health Care Education/Training Program; PCP Family Medicine; Visit Provider Internal Medicine
DX: R07.9 Chest pain, unspecified (principal); I10 Essential (primary) hypertension; J43.9 Emphysema, unspecified; F17.210 Nicotine dependence, cigarettes, uncomplicated; H91.8X3 Other specified hearing loss, bilateral; I25.2 Old myocardial infarction; Z95.5 Presence of coronary angioplasty implant and graft; R91.1 Solitary pulmonary nodule; D64.9 Anemia, unspecified; E78.5 Hyperlipidemia, unspecified; Z20.822 Contact with and (suspected) exposure to COVID-19
CPT/HCPCS: 36415; 78452; 80048; 80053; 85027; 87635; 93005; 93306; 94640; 99285; J1650; 71045; 83036; 83735; 83880; 84484; 85025; 85379; 85610; 85730; 93010; 93017; 99217; 99220; G0378; J2785; J7620

== ENCOUNTER 2021-10-29 12:22 | Outpatient (REF) | payer MEDICARE, MEDICAID, SELFPAY ==
[2021-10-31 15:33] LABS: COVID-19 RT-PCR UVMMC Result Negative (Negative)
== END 2021-10-29 12:23 | disposition home or self-care (01) ==
LOC: NCHCN 12:22
PROVIDERS: PCP Family Medicine; Visit Provider Family Medicine
DX: Z20.822 Contact with and (suspected) exposure to COVID-19 (principal)
CPT/HCPCS: U0003